=== PATIENT | female | born 1990 | race Caucasian/White ===

== ENCOUNTER 2021-01-15 04:12 | Emergency (ER) | payer OTHER, MEDICAID ==
[~2021-01-15] VITALS: Ht 157.5 cm; Wt 69.0 kg
[2021-01-15] MEDS ORDERED: BUSPAR30 MG PO (04:18)
[2021-01-15] MEDS ORDERED: KEPPRA750 MG PO (04:18)
[2021-01-15] MEDS ORDERED: DEPAKOTE250 MG PO (04:18)
[2021-01-15 04:33] LABS: URINE BILIRUBIN NEGATIVE (Negative); URINE BLOOD NEGATIVE (Negative); URINE COLOR DARK YELLOW; URINE GLUCOSE-RANDOM NEGATIVE (Negative); URINE KETONES NEGATIVE (Negative); URINE LEUKOCYTES-REFLEX TRACE (Negative); URINE PROTEIN NEGATIVE (Negative); URINE SPECIFIC GRAVITY >= 1.030 (1.005-1.030); URINE UROBILINOGEN 0.2 E.U./dl (0.2-1.0)
[2021-01-15 04:36] LABS: URINE CLARITY SL CLOUDY; URINE NITRITE-REFLEX POSITIVE (Negative)
[2021-01-15 04:43] LABS: AMP/METHAMP POSITIVE (Negative); BARBITURATES Negative (Negative); BENZODIAZEPINES Negative (Negative); COCAINE Negative (Negative); METHADONE Negative (Negative); OPIATES Negative (Negative); PCP Negative (Negative); THC POSITIVE (Negative)
[2021-01-15 04:47] LABS: BACTERIA-REFLEX >30 Many /HPF (None Seen); COARSE GRANULAR CASTS 0-3 Few /LPF (None Seen); CRYSTALS None Seen /LPF (None Seen); FINE GRANULAR CASTS 0-3 Few /LPF (None Seen); MUCUS 4-6 Moderate strn/LPF (None Seen); SQUAMOUS 4-10 Moderate /LPF (0-3); TRANSITIONAL EPITHEL CELL 0-3 Few /LPF (None Seen); URINE RBC 3-10 Few /HPF (0-2); WBC CLUMPS Few (None Seen)
[2021-01-15] MEDS ORDERED: CEPHALEXIN500 MG PO (05:06)
[2021-01-15 06:13] VITALS: BP 130/78
== END 2021-01-15 06:16 | disposition home or self-care (01) ==
LOC: M.ERS 04:12
PROVIDERS: Emergency Medicine
DX: O23.41 Unspecified infection of urinary tract in pregnancy, first trimester (principal); G40.909 Epilepsy, unspecified, not intractable, without status epilepticus; Z3A.01 Less than 8 weeks gestation of pregnancy; Z79.899 Other long term (current) drug therapy; Z88.0 Allergy status to penicillin